=== PATIENT | female | born 1985 | race Caucasian/White ===

== ENCOUNTER 2016-08-09 08:18 | Emergency (ER) | payer OTHER ==
[2016-08-09 08:30] VITALS: BP 131/81
--- NOTE | 2016-08-09 08:45 | UC ---
Respiratory Complaint HPI - History of Current Complaint Chief Complaint: UCRespiratory Stated Complaint: COUGH,CHEST CONGESTION,DIARRHEA Time Seen by Provider: 08/09/16 08:34 Hx Obtained From: Patient Hx Last Menstrual Period: 07/23/16 ?: No Onset/Duration: Sudden Onset, Lasting Days - 4, Worse Since - yesterday Severity Initially: Mild Severity Currently: Moderate Character: Cough: Productive Associated Signs And Symptoms: Positive: Wheezing, URI, Nasal Congestion, Hoarseness - Allergies/Home Medications Allergies/Adverse Reactions: Allergies Allergy/AdvReac Type Severity Reaction Status Date / Time Cefaclor [From Ceclor] Allergy Rash Verified 08/09/16 08:25 Erythromycin Allergy Rash Verified 08/09/16 08:25 Amoxicillin [From Augmentin] AdvReac Vomiting Verified 08/09/16 08:25 Clavulanic Acid AdvReac Vomiting Verified 08/09/16 08:25 [From Augmentin] Penicillins AdvReac Vomiting Verified 08/09/16 08:25 Home Medications: Home Medications Phenylephrine-Diphenhydramine- [MUCINEX FAST-MAX DAY/NIGH (Tablet)] 20 ml PO Q4H PRN 08/09/16 [History Confirmed 08/09/16] PMH/Surg Hx/FS Hx/Imm Hx Previously Healthy: Yes Endocrine History Of: Denies: Thyroid Disease Cardiovascular History Of: Denies: Hypertension Respiratory History Of: Denies: Asthma - Surgical History Surgical History: Yes Surgery Procedure, Year, and Place: Cholecystectomy, 2003, [place] - Family History Known Family History: Positive: Cardiac Disease, Other - Cancer lung and pancreatic Negative: Hypertension, Diabetes - Social History Occupation: Employed Full-time Lives: Alone - with BF Alcohol Use: Occasionally Substance Use Type: None Smoking Status (MU): Never Smoked Tobacco Have You Smoked in the Last Year: No - Immunization History Most Recent Influenza Vaccination: Not the 2016/2016 Season Review of Systems Constitutional: Fatigue ENT: Sore Throat, Nasal Discharge Respiratory: Cough Cardiovascular: Chest Pain Gastrointestinal: Vomiting All Other Systems Reviewed And Are Negative: Yes Physical Exam Triage Information Reviewed: Yes Appearance: No Pain Distress, Well-Nourished, Ill-Appearing Vital Signs: Initial Vital Signs Temp 99.3 F 08/09/16 08:22 Pulse 94 08/09/16 08:22 Resp 18 08/09/16 08:22 BP 131/81 08/09/16 08:22 Pulse Ox 99 08/09/16 08:22 Vital Signs Reviewed: Yes Eyes: Positive: Conjunctiva Clear ENT: Positive: Pharynx normal, Nasal congestion, TMs normal Neck exam: Normal Respiratory: Positive: Wheezing - mild expiratory wheezes Cardiovascular Exam: Normal Musculoskeletal Exam: Normal Neurological Exam: Normal Psychological Exam: Normal Skin Exam: Normal UC Diagnostic Evaluation - Laboratory O2 Sat by Pulse Oximetry: 99 Respiratory Course/Dx - Differential Dx/Diagnosis Differential Diagnosis/HQI/PQRI: Asthma, Lower Resp Infection, Sinusitis Provider Diagnoses: Acute URI. Acute bronchospasm Discharge - Discharge Plan Condition: Stable Disposition: HOME Prescriptions: Albuterol HFA INHALER* [Ventolin HFA Inhaler*] 2 puff INH Q4H PRN #1 mdi PRN Reason: Wheezing predniSONE TAB* [Deltasone TAB*] 20 mg PO DAILY #18 tab Patient Education Materials: Upper Respiratory Infection (ED), Bronchospasm (ED ), Prednisone (By mouth), How to Use a Metered-Dose Inhaler (ED), Albuterol (By breathing) Additional Instructions: Make a follow up in the next month for your blood pressure.
== END 2016-08-09 09:04 | disposition home or self-care (01) ==
LOC: UCCORT 08:18
DX: J06.9 Acute upper respiratory infection, unspecified (principal); J98.01 Acute bronchospasm; Z88.1 Allergy status to other antibiotic agents; Z88.0 Allergy status to penicillin; Z90.49 Acquired absence of other specified parts of digestive tract
CPT/HCPCS: 99212; G0463

== ENCOUNTER 2018-05-12 11:22 | Emergency (ER) | payer OTHER ==
[2018-05-12 12:22] VITALS: BP 137/90
--- NOTE | 2018-05-12 12:31 | UC ---
Throat Pain/Nasal Wilfred HPI - HPI Summary HPI Summary: sinus pain and pressure x 7 days + nasal congestion , pnd, cough no fever, no chills - History of Current Complaint Chief Complaint: UCRespiratory Stated Complaint: COUGH,SINUS COMPLAINT X1 WEEK Time Seen by Provider: 05/12/18 12:24 Hx Obtained From: Patient Hx Last Menstrual Period: 04/27/18 ?: No Onset/Duration: Gradual Onset, Lasting Days - 7, Still Present Severity: Moderate Pain Intensity: 0 Cough: Nonproductive Associated Signs & Symptoms: Positive: Sinus Discomfort, Nasal Discharge. Negative: Dysphagia, FB Sensation, Drooling, Wheezing, Hoarseness, Fever, Vomiting, Rash - Allergies/Home Medications Allergies/Adverse Reactions: Allergies Allergy/AdvReac Type Severity Reaction Status Date / Time amoxicillin Allergy Vomiting Verified 05/12/18 12:16 cefaclor [From Ceclor] Allergy Rash Verified 05/12/18 12:16 clavulanic acid Allergy Vomiting Verified 05/12/18 12:16 [From Augmentin] erythromycin base Allergy Rash Verified 05/12/18 12:16 Penicillins Allergy Vomiting Verified 05/12/18 12:16 Home Medications: Home Medications Doxylam/PE/Dm/Acetaminophen/GG [Mucinex Fast-Max Day/Nigh] 20 ml PO Q4H PRN [History Confirmed 05/12/18] Zicam PRN 05/12/18 [History] PMH/Surg Hx/FS Hx/Imm Hx Previously Healthy: Yes - Surgical History Surgical History: Yes Surgery Procedure, Year, and Place: Cholecystectomy, 2003, [place] - Family History Known Family History: Positive: Cardiac Disease, Other - Cancer lung and pancreatic Negative: Hypertension, Diabetes - Social History Alcohol Use: Occasionally Substance Use Type: None Smoking Status (MU): Never Smoked Tobacco Have You Smoked in the Last Year: No - Immunization History Most Recent Influenza Vaccination: Not the 2016/2017 Season Review of Systems All Other Systems Reviewed And Are Negative: Yes Constitutional: Positive: Negative Skin: Positive: Negative Eyes: Positive: Negative ENT: Positive: Ear Ache, Nasal Discharge, Sinus Congestion, Sinus Pain/ Tenderness Respiratory: Positive: Cough Cardiovascular: Positive: Negative Gastrointestinal: Positive: Negative Is Patient Immunocompromised?: No Physical Exam Triage Information Reviewed: Yes Appearance: Well-Appearing, No Pain Distress, Well-Nourished Vital Signs: Initial Vital Signs Temp 98.8 F 05/12/18 12:18 Pulse 73 05/12/18 12:18 Resp 18 05/12/18 12:18 BP 137/90 05/12/18 12:18 Pulse Ox 98 05/12/18 12:18 Vital Signs Reviewed: Yes Eye Exam: Normal Eyes: Positive: Conjunctiva Clear ENT: Positive: Normal ENT inspection, Hearing grossly normal, Pharyngeal erythema, Nasal congestion, Nasal drainage, TMs normal, Sinus tenderness. Negative: TM bulging, TM dull, TM red, Tonsillar swelling Neck: Positive: Supple, Nontender, No Lymphadenopathy Respiratory: Positive: Chest non-tender, Lungs clear, Normal breath sounds Cardiovascular: Positive: RRR, No Murmur, Pulses Normal Skin Exam: Normal Throat Pain/Nasal Course/Dx - Differential Dx/Diagnosis Provider Diagnosis: Sinusitis Discharge - Sign-Out/Discharge Documenting (check all that apply): Patient Departure All imaging exams completed and their final reports reviewed: No Studies - Discharge Plan Condition: Stable Disposition: HOME Prescriptions: Azithromycin TAB* [Zithromax TAB (Z-NAYELI) 250 mg #6 tabs] 2 tab PO .TODAY, THEN 1 DAILY #1 nayeli Patient Education Materials: Sinusitis (ED) Referrals: No Primary Care Phys,NOPCP [Primary Care Provider] - If Needed - Billing Disposition and Condition Condition: STABLE Disposition: Home
== END 2018-05-12 12:33 | disposition home or self-care (01) ==
LOC: UCCORT 11:22
DX: J32.9 Chronic sinusitis, unspecified (principal); Z88.0 Allergy status to penicillin; Z88.1 Allergy status to other antibiotic agents; Z88.8 Allergy status to other drugs, medicaments and biological substances
CPT/HCPCS: 99212; G0463